=== PATIENT | male | born 1950 | race Caucasian/White ===

== ENCOUNTER → 2023-07-17 15:00 | Outpatient (CLI) | payer OTHER, SELFPAY ==
--- NOTE | 2023-07-17 | DI.MRI.S_ITS ---
PROCEDURE: MR ANKLE RT WO CON INDICATIONS: TIBIALIS POSTERIOR TENDINOPATHY TECHNIQUE: Noncontrast sagittal T1 spin echo and T2 fast spin echo with fat saturation, axial proton density fast spin echo and T2 fast spin echo with fat saturation, coronal T1 spin echo and T2 fast spin echo with fat saturation through the ankle/hindfoot. COMPARISON: None. FINDINGS: Image quality: Excellent. Bones and joints: Mild midfoot and hindfoot joint osteoarthritic changes are seen more notably involving tibiotalar joint. No fracture or dislocation. Small osteochondral injuries are noted involving medial and mid portion of distal tibial plafond. Likely tiny osteochondral injuries are noted involving anterior and medial aspect of talar dome measures 1-2 mm in size. No acute fracture or dislocation. No significant joint effusion. Medial structures: The posterior tibialis tendon is markedly thickened with intrasubstance T2 hyperintense signal at the level of distal tibia extending to the level of talonavicular joint. The flexor digitorum longus, and flexor hallucis longus tendons are intact. Small amount of fluid distending flexor tendon sheath is seen. The posterior tibial neurovascular bundle appears normal within the tarsal tunnel, without extrinsic mass effect. The deltoid ligament and spring ligament are thickened with intrasubstance T2 hyperintense signal. Lateral structures: The anterior talofibular, calcaneofibular, and posterior talofibular ligaments appear intact. More superiorly, the anterior and posterior tibiofibular ligaments appear intact, as is the intermalleolar ligament. The tibiofibular syndesmosis is normal in width at 2 mm or less. The peroneus longus and brevis tendons demonstrate normal location and morphology. Small amount of fluid is seen distending peroneus tendon sheath at the level of lateral malleolus extending to the level of calcaneocuboid joint. Adjacent bony peroneal tubercle and retrotrochlear prominence are normal in size. The sinus tarsi demonstrates normal fatty signal, without edema, fibrosis, or cyst formation. Visualized sinus tarsi components (cervical ligament, interosseous talocalcaneal ligament, roots of the inferior extensor retinaculum) appear normal. The calcaneonavicular and calcaneocuboid components of the bifurcate ligament appear intact. The dorsal calcaneocuboid ligament appears intact. Anterior structures: The tibialis anterior, extensor hallucis longus, and extensor digitorum longus tendons appear intact. The dorsal talonavicular ligament appears intact. Posterior and plantar structures: Distal Achilles tendinosis is seen. No Achilles tendon rupture. Medial band of plantar fascia is mildly thickened at its plantar calcaneal insertion with mild adjacent edema. No abductor digiti quinti muscle atrophy to suggest Campos neuropathy. IMPRESSION: 1. Low-grade tenosynovitis involving flexor tendons with moderate grade tendinosis and intrasubstance partial-thickness tear involving posterior tibialis tendon at the level of distal tibia extending to the level of talonavicular joint. 2. Low-grade sprain/intrasubstance partial-thickness tear involving deltoid ligament and spring ligament. 3. Mild midfoot and hindfoot joint osteoarthritis. No acute fracture or dislocation. Small osteochondral injuries noted involving distal tibial plafond and anterior medial aspect of talar dome as above. 4. Low-grade tenosynovitis involving peroneus tendons as above. 5. Low-grade distal Achilles tendinosis. No Achilles tendon rupture. Mildly thickened medial band of plantar fascia at its insertion on calcaneus concerning for low-grade plantar fasciitis. Dictated by: Milo Warren M.D. on 07/19/2023 at 10:33 Approved by: Milo Warren M.D. on 07/19/2023 at 10:53
== END ==
PROVIDERS: Referring Provider Orthopaedic Surgery Foot and Ankle Surgery; Visit Provider Orthopaedic Surgery Foot and Ankle Surgery
DX: M65.871 Other synovitis and tenosynovitis, right ankle and foot (principal); S96.811A Strain of other specified muscles and tendons at ankle and foot level, right foot, initial encounter; M19.071 Primary osteoarthritis, right ankle and foot
CPT/HCPCS: 73721